=== PATIENT | female | born 1965 | race Two or more races ===

== ENCOUNTER 2021-04-26 19:12 | Emergency (ER) | payer SELFPAY ==
[~2021-04-26] VITALS: Ht 160 cm; Wt 72.2 kg
--- NOTE | 2021-04-26 20:21 | PHYS DOC ---
Past Medical History Past Medical History: No Pertinent History Past Surgical History: Cholecystectomy, Hysterectomy Smoking Status: Never Smoker Alcohol Use: None General Adult EDM: Chief Complaint: HEADACHE HPI: HPI: Patient is a 55 year old 55-year-old female presents emergency department chief complaint of headache for the past week. Patient reports a slow onset that has reached a consistent 8 out of 10 pain patient states that she has been visiting her son here in [place], she resides in [place]. Patient states she is traveling back home to [place] this coming Monday. Patient reports she has a headache that is consistent with her normal migraine headaches. Patient states this is not the worst headache of her life, states that it was a slow onset that was unrelieved with [id number] Tylenol. Patient states that it is mostly located in the front of her head and is throbbing. Patient denies any visual changes, denies migraine auras, denies recent fever or chills, denies rashes to her skin. Patient denies any syncopal episodes. Patient denies any other physical complaints or physical concerns. Patient denies any allergies to medications, states she takes no prescription medications for her migraines, states that the pharmacies here in the [facility] are different than those from [place]. Patient states she does take medications in [place] for her migraines however they [facility]. Review of Systems: Review of Systems: 14 body systems of review of systems have been reviewed. See HPI for pertinent positives and negative responses, otherwise all other systems are negative, nonpertinent or noncontributory. Heart Score: C/O Chest Pain: No Risk Factors: Risk Factors: DM, Current or recent (<one month) smoker, HTN, HLP, family history of CAD, obesity. Risk Scores: Score 0 - 3: 2.5% MACE over next 6 weeks - Discharge Home Score 4 - 6: 20.3% MACE over next 6 weeks - Admit for Clinical Observation Score 7 - 10: 72.7% MACE over next 6 weeks - Early Invasive Strategies Allergies: Allergies: Allergies Coded Allergies Type Severity Reaction Last Updated Verified No Known Drug Allergies 04/26/21 No Physical Exam: PE: Constitutional: Well developed, well nourished, no acute distress, non-toxic appearance. 55-year-old female in no apparent distress. HENT: Normocephalic, atraumatic. Eyes: Conjunctiva normal, no discharge. The patient is not photophobic. Neck: Normal range of motion, no stridor. Cardiovascular: No cyanosis appreciated, distal cap refill less than 2 seconds. Lungs & Thorax: Patient is in no respiratory distress, no audible adventitious lung sounds appreciated. Abdomen: Nontender, no abnormalities noted. Skin: Warm, dry, no erythema, no rash. Back: No tenderness, no deformities. Extremities: No tenderness, no cyanosis, no clubbing, ROM intact, no edema. Neurologic: Alert and oriented X 3, normal motor function, normal sensory function, no focal deficits noted. Psychologic: Affect normal, judgement normal, mood normal. Current Patient Data: Vital Signs: Vital Signs Date Time Temp Pulse Resp B/P (MAP) Pulse Ox O2 Delivery O2 Flow Rate FiO2 04/26/21 19:15 98.7 68 16 136/84 (101) 97 Room Air 98.7 EKG: EKG: [] Radiology/Procedures: Radiology/Procedures: [] Course & Med Decision Making: Course & Med Decision Making Pertinent Labs and Imaging studies reviewed. (See chart for details) 55-year-old female, vital signs reviewed, presents emergency department chief complaint of migraine headache for the past week slow onset, was currently rating her pain at a 8 out of 10. This was not a thunderclap onset, the patient is not photophobic, will order headache cocktail and reevaluate after a period of time. After period of time, the patient states her headache is down to a 1 out of 10 and is more tolerable and wishes to go home. Patient states she is thankful for the care she received and is ready to be discharged. Patient denies any nausea or vomiting, denies any dizziness or visual changes. The patient gave verbal understanding of discharge home instructions, follow-up with PCP when she returns back to [place] this weekend, return to ER precautions or concerns, patient remained hemodynamically stable and in no apparent distress, nontoxic in appearance during her ER stay and at dispo time, patient was discharged home without incident. Deniseon Disclaimer: David Disclaimer: This electronic medical record was generated, in whole or in part, using a voice recognition dictation system. Departure Departure Impression: Primary Impression: Migraine headache Qualified Codes: G43.009 - Migraine without aura, not intractable, without status migrainosus Disposition: 01 HOME / SELF CARE / HOMELESS Condition: GOOD Referrals: NO PCP (PCP) Patient Instructions: Migraine Headache Additional Instructions: You were seen today in the emergency department for a headache, you were treated with IV pain medications and IV fluids. You have indicated that your headache is now tolerable and you are ready to go home. I encourage you to continue to take Tylenol and or Motrin for ongoing headache pains. Please follow-up with your primary care physician when you return to [place] later next week. Please r eturn to the emergency department for worsening symptoms or other concerns. It was a pleasure taking care of you today in the emergency department and I thank you for allowing me to participate in your emergency healthcare needs. EMERGENCY DEPARTMENT GENERAL DISCHARGE INSTRUCTIONS Thank you for coming to [facility] Emergency Department (ED) today and trusting us with you care. We trust that you had a positive experience in our Emergency Department. If you wish to speak to the department management, you may call the Director at [phone]. YOUR FOLLOW UP INSTRUCTIONS ARE FOLLOWS: 1. Do you have a private Doctor? If you do not have a private doctor, please ask for a resource list of physicians or clinics that may be able to assist you with follow up care. 2. The Emergency Physicain has interpreted your x-rays. The X-Ray specialist will also review them. If there is a change in the findings, you will be notified in 48 hours when at all possible. 3. A lab test or culture has been done, your results will be reviewed and you will be notified if you need a change in treatment. ADDITIONAL INSTRUCTIONS AND INFORMATION: 1. Your care today has been supervised by a physician who is specially trained in emergency care. Many problems require more than one evaluation for a complete diagnosis and treatment. We recommend that you schedule your follow up appointment as recommended to ensure complete treatment of you illness or injury. If you are unable to obtain follow up care and continue to have a problem, or if your condition worsens, we recommend that you return to the ED. 2. We are not able to safely determine your condition over the phone nor are we able to give sound medical advice over the phone. For these safety reasons, if you call for medical advice we will ask you to come to the ED for further evaluation. 3. If you have any questions regarding these discharge instructions please call the ED at [phone]. SAFETY INFORMATION: In the interest of safety, wellness, and injury prevention; we encourage you to wear your sealbelt, if you smoke; quite smoking, and we encourage family to use a protective helmet for bicycling and other sporting events that present an increased risk for head injury. IF YOUR SYMPTOMS WORSEN OR NEW SYMPTOMS DEVELOP, OR YOU HAVE CONCERNS ABOUT YOUR CONDITION; OR IF YOUR CONDITION WORSENS WHILE YOU ARE WAITING FOR YOUR FOLLOW UP APPOINTMENT; EITHER CONTACT YOUR PRIMARY CARE DOCTOR, THE PHYSICIAN WHOSE NAME AND NUMBER YOU WERE GIVEN, OR RETURN TO THE ED IMMEDIATELY. CARROLL MARTELL BOILER BLOWER Apr 26, 2021 20:21
[2021-04-26] MEDS ORDERED: METOCLOPRAMIDE HCL 10 MG/2 ML VIAL. IVP ONE (20:30)
[2021-04-26] MEDS ORDERED: IV NORMAL SALINE 1000ML BAG 1,000 ML IV ONE (20:30)
[2021-04-26] MEDS ORDERED: diphenhydrAMINE 50 MG/ML VIAL IVP ONE (20:30)
[2021-04-26] MEDS ORDERED: KETOROLAC 30 MG/ML VIAL. IVP ONE (20:30)
[2021-04-26 22:30] VITALS: BP 111/73
== END 2021-04-26 22:32 | disposition home or self-care (01) ==
LOC: ER 19:12
DX: G43.009 Migraine without aura, not intractable, without status migrainosus (principal)
CPT/HCPCS: 96361; 96374; 96375; 99285; J1200; J1885; J2765; J7030